=== PATIENT | female | born 1950 | race Two or more races ===

== ENCOUNTER 2018-07-08 17:26 | Inpatient (IN) | payer MEDICARE, MEDICAID ==
[~2018-07-08] VITALS: Ht 167.6 cm; Wt 52.4 kg
[2018-07-08 22:45] VITALS: BP 106/55
[2018-07-09] VITALS: BP 112/63
[2018-07-09] MEDS ORDERED: MULTIVITAMINS1 EAC8 ORAL (00:11)
[2018-07-09] MEDS ORDERED: SINEMET 25-1001 EAC1 ORAL (00:11)
[2018-07-09] MEDS ORDERED: DOCUSATE SODIU100 MG ORAL (00:11)
[2018-07-09] MEDS ORDERED: BUDESONIDE1 MG/2 ML IH (00:11)
[2018-07-09] MEDS ORDERED: KLONOPIN0.5 MG ORAL (00:11)
[2018-07-09] MEDS ORDERED: FLEET ENEMA133 M1 RC (00:11)
[2018-07-09] MEDS ORDERED: IPRAT-ALBUT 0.5-3 ML IH (00:11)
[2018-07-09] MEDS ORDERED: SUPPOSITORY1 EACH RC (00:11)
[2018-07-09] MEDS ORDERED: LEXAPRO20 MG ORAL (00:11)
[2018-07-09] MEDS ORDERED: MIRTAZAPINE30 MG ORAL (00:11)
[2018-07-09] MEDS ORDERED: DULCOLAX10 MG RC (00:11)
[2018-07-09] MEDS ORDERED: BISACODYL5 MG RECTAL (00:11)
[2018-07-09] MEDS ORDERED: LEVEMIR FL100 UNIT/2 SQ (00:11)
[2018-07-09] MEDS ORDERED: FAMOTIDINE20 MG ORAL (00:11)
[2018-07-09] MEDS ORDERED: FLEET ENEMA133 ML RECTAL (00:11)
[2018-07-09] MEDS ORDERED: ACETAMINOPHEN325 M1 ORAL (00:11)
[2018-07-09] MEDS ORDERED: MOM30 ML ORAL (00:11)
[2018-07-09] MEDS ORDERED: Albuterol/Ipratropium 3ml neb HHN PRN (00:30)
[2018-07-09] MEDS ORDERED: Fleet's Enema 133ml RECTAL PRN (00:30)
[2018-07-09] MEDS ORDERED: Bisacodyl EC 5mg tab ORAL PRN (00:30)
[2018-07-09] MEDS ORDERED: Budesonide HHN 0.25mg/2ml ud HHN PRN (00:45)
[2018-07-09] MEDS ORDERED: Glycerin Supp RECTAL PRN (00:45)
[2018-07-09] MEDS: cefTRIAXone 1 GM in D5W 55 ML IVPB SCH (01:13)
[2018-07-09] MEDS ORDERED: Milk of Magnesia 30ml Ud ORAL PRN (03:15)
[2018-07-09 04:00] VITALS: BP 138/68
[2018-07-09] MEDS: NovoLOG Insulin Flexpen SUBQ SCH ×4 (06:06→20:25)
[2018-07-09 07:31] LABS: BASOPHILS % (AUTO) 0.7 % (0.0-2.0); EOSINOPHILS % (AUTO) 1.2 % (0.0-3.0); HEMATOCRIT 32.7 % (37.0-47.0); HEMOGLOBIN 11.2 G/DL (12.0-16.0); LYMPHOCYTES % (AUTO) 16.8 % (20.0-45.0); MEAN CORPUSCULAR VOLUME 86 FL (80-99); MONOCYTES % (AUTO) 6.4 % (1.0-10.0); NEUTROPHILS % (AUTO) 74.9 % (45.0-75.0); PLATELET COUNT 164 K/UL (150-450); RED BLOOD COUNT 3.82 M/UL (4.20-5.40); RED CELL DISTRIBUTION WIDTH 10.8 % (11.6-14.8); WHITE BLOOD COUNT 8.1 K/UL (4.8-10.8)
[2018-07-09 07:40] LABS: ALANINE AMINOTRANSFERASE 47 U/L (12-78); ALBUMIN 2.9 G/DL (3.4-5.0); ALBUMIN/GLOBULIN RATIO 0.7 (1.0-2.7); ALKALINE PHOSPHATASE 138 U/L (46-116); ANION GAP 5 mmol/L (5-15); ASPARTATE AMINO TRANSFERASE 44 U/L (15-37); BILIRUBIN,TOTAL 0.3 MG/DL (0.2-1.0); BLOOD UREA NITROGEN 30 mg/dL (7-18); CALCIUM 10.2 MG/DL (8.5-10.1); CARBON DIOXIDE 29 MMOL/L (21-32); CHLORIDE 105 MMOL/L (98-107); CREATININE 0.9 MG/DL (0.55-1.30); POTASSIUM 4.5 MMOL/L (3.5-5.1); SODIUM 139 MMOL/L (136-145)
[2018-07-09 08:00] VITALS: BP 105/53
[2018-07-09] MEDS: Multivitamin w/Minerals tab ORAL SCH (08:59)
[2018-07-09] MEDS: Levodopa/Carbidopa 25/100 tab ORAL SCH ×2 (08:59→18:11)
[2018-07-09] MEDS: clonazePAM 0.5mg tab ORAL SCH ×2 (09:00→18:12)
[2018-07-09] MEDS ORDERED: Milk of Magnesia 30ml Ud ORAL SCH (09:00)
[2018-07-09] MEDS: Docusate 100mg cap ORAL SCH ×2 (09:00→18:11)
[2018-07-09] MEDS: Levemir Flexpen SUBQ SCH ×2 (09:01→20:24)
--- NOTE | 2018-07-09 09:40 | Diagnostic Imaging Report ---
EXAM: CT Head Without Intravenous Contrast CLINICAL HISTORY: Altered mental status TECHNIQUE: Axial computed tomography images of the head/brain without intravenous contrast. CTDI is 70.53 mGy and DLP is 1428 mGy-cm. One or more of the following dose reduction techniques were used: automated exposure control, adjustment of the mA and/or kV according to patient size, use of iterative reconstruction technique. COMPARISON: No relevant prior studies available. FINDINGS: Brain: Unremarkable. No evidence of acute intracranial hemorrhage. No significant white matter disease. No edema. No mass effect or midline shift. Ventricles: Unremarkable. No ventriculomegaly. Bones/joints: Unremarkable. No depressed skull fracture. Soft tissues: Unremarkable. Sinuses: Unremarkable as visualized. No acute sinusitis. Mastoid air cells: Unremarkable as visualized. No mastoid effusion. IMPRESSION: Unremarkable noncontrast CT of the head/brain.
[2018-07-09] MEDS ORDERED: Tubing IV Secondary IV ONE (10:42)
[2018-07-09 12:00] VITALS: BP 106/55
[2018-07-09 16:00] VITALS: BP 115/62
--- NOTE | 2018-07-09 18:02 | Cardiology Progress Note ---
Assessment/Plan Assessment/Plan The patient is seen and examined, full consult note will be dictated shortly. Objective Last 24 Hour Vital Signs Date Time Temp Pulse Resp B/P (MAP) Pulse Ox O2 Delivery O2 Flow Rate FiO2 07/09/18 16:00 97.1 63 20 115/62 (79) 97 07/09/18 12:00 99.2 60 20 106/55 (72) 96 07/09/18 09:00 Room Air 07/09/18 08:00 98.1 63 21 105/53 (70) 95 07/09/18 04:00 98.0 64 16 138/68 (91) 97 07/09/18 00:00 97.6 67 18 112/63 (79) 96 07/08/18 23:00 Room Air 07/08/18 22:45 97.5 67 18 106/55 (72) 93 Intake and Output 07/08/18 07/09/18 19:00 07:00 Intake Total 670 ml Balance 670 ml Intake Oral 240 ml IV Total 430 ml # Voids 3 # Bowel Movements 2 Laboratory Tests Test 07/09/18 06:00 White Blood Count 8.1 K/UL (4.8-10.8) Red Blood Count 3.82 M/UL (4.20-5.40) L Hemoglobin 11.2 G/DL (12.0-16.0) L Hematocrit 32.7 % (37.0-47.0) L Mean Corpuscular Volume 86 FL (80-99) Mean Corpuscular Hemoglobin 29.4 PG (27.0-31.0) Mean Corpuscular Hemoglobin Concent 34.2 G/DL (32.0-36.0) Red Cell Distribution Width 10.8 % (11.6-14.8) L Platelet Count 164 K/UL (150-450) Mean Platelet Volume 7.4 FL (6.5-10.1) Neutrophils (%) (Auto) 74.9 % (45.0-75.0) Lymphocytes (%) (Auto) 16.8 % (20.0-45.0) L Monocytes (%) (Auto) 6.4 % (1.0-10.0) Eosinophils (%) (Auto) 1.2 % (0.0-3.0) Basophils (%) (Auto) 0.7 % (0.0-2.0) Sodium Level 139 MMOL/L (136-145) Potassium Level 4.5 MMOL/L (3.5-5.1) Chloride Level 105 MMOL/L (98-107) Carbon Dioxide Level 29 MMOL/L (21-32) Anion Gap 5 mmol/L (5-15) Blood Urea Nitrogen 30 mg/dL (7-18) H Creatinine 0.9 MG/DL (0.55-1.30) Estimat Glomerular Filtration Rate > 60 mL/min (>60) Glucose Level 85 MG/DL (74-106) Hemoglobin A1c 5.9 % (4.3-6.0) Calcium Level 10.2 MG/DL (8.5-10.1) H Total Bilirubin 0.3 MG/DL (0.2-1.0) Aspartate Amino Transf (AST/SGOT) 44 U/L (15-37) H Alanine Aminotransferase (ALT/SGPT) 47 U/L (12-78) Alkaline Phosphatase 138 U/L (46-116) H Total Protein 7.1 G/DL (6.4-8.2) Albumin 2.9 G/DL (3.4-5.0) L Globulin 4.2 g/dL Albumin/Globulin Ratio 0.7 (1.0-2.7) L Microbiology Date/Time Source Procedure Growth Status 07/09/18 03:00 Rectum Received Laurent Thakkar MD Jul 09, 2018 18:02
--- NOTE | 2018-07-09 19:45 | History and Physical Report ---
DATE OF ADMISSION: 07/08/2018 HISTORY OF PRESENT ILLNESS: This is a 67-year-old female who came to the emergency room for altered mental status, dehydration, UTI, history of hypertension, and diabetes. The patient is confused and cannot give any history, but she looks deteriorated. PAST MEDICAL HISTORY: Significant for hypertension, dementia, depression, degenerative arthritis. ALLERGIES: NKA. FAMILY HISTORY: Noncontributory. SOCIAL HISTORY: The patient lives at senior care, mostly bedbound. REVIEW OF SYSTEMS: Cannot be obtained. PHYSICAL EXAMINATION: GENERAL: This is an elderly female, who is currently awake, comfortable. VITAL SIGNS: Blood pressure is 117/70, pulse 74, and respirations 18. No fever. SKIN: Good skin turgor. HEENT: NAD. CHEST: Bilateral clear. CARDIOVASCULAR: Regular rhythm. No gallop. No murmur. ABDOMEN: Soft. EXTREMITIES: No CCE. NEUROLOGICAL: Generalized weakness. ASSESSMENT: 1. Altered mental status. 2. Urinary tract infection. 3. Dehydration. 4. Encephalopathy. PLAN: We will admit on medical floor. Rule out UTI. Check laboratories, CBC and CMP. Start antibiotics, IV fluid, and consider Cardiology consult to rule out cardiac arrhythmia. Cheng De Leon M.D. DR: Shelley JOB#: [id number] CC:
[2018-07-09 20:00] VITALS: BP 128/61
--- NOTE | 2018-07-09 23:20 | Consultation ---
History of Present Illness General Date patient seen: Jul 09, 2018 Present Illness HPI 67-year-old female was bi for altered mental status, dehydration, UTI , history of hypertension, and diabetes. the pt pw depressed moo, anhedonia, low energy and low appetite no si/hi Allergies: Coded Allergies: No Known Allergies (Unverified , 07/08/18) Medication History Scheduled Carbidopa/Levodopa 25-100 Mg* (Sinemet 25-100 Mg Tablet*), 1 TAB ORAL TWICE A DAY, (Reported) Clonazepam* (Klonopin*), 0.5 MG ORAL TWICE A DAY, (Reported) Docusate Sodium* (Docusate Sodium*), 100 MG ORAL TWICE A DAY, (Reported) Escitalopram Oxalate* (Lexapro*), 20 MG ORAL DAILY, (Reported) Famotidine (Famotidine), 20 MG ORAL DAILY, (Reported) Insulin Detemir (Levemir Flextouch), 10 UNIT SQ EVERY 12 HOURS, (Reported) Magnesium Hydroxide (Milk of Magnesia), 30 ML ORAL DAILY, (Reported) Mirtazapine* (Remeron*), 30 MG ORAL BEDTIME, (Reported) Multivitamin With Minerals (Multivitamins With Minerals*), 1 TAB ORAL DAILY, ( Reported) Na Phos,M-B/Na Phos,Di-Ba* (Fleet Enema*), 133 ML RECTAL DAILY, (Reported) Scheduled PRN Acetaminophen* (Acetaminophen 325MG Tablet*), 650 MG ORAL Q4H PRN for Mild Pain (Pain Scale 1-3), (Reported) Bisacodyl (Dulcolax), 10 MG RC for Constipation, (Reported) Bisacodyl* (Dulcolax*), 10 MG RECTAL DAILY PRN for Constipation, (Reported) Budesonide (Budesonide), 0.5 MG IH EVERY 12 HOURS PRN for ASTHMA EPISODE, ( Reported) Glycerin (Suppository), 1 EACH RC for Constipation, (Reported) Ipratropium/Albuterol Sulfate (Iprat-Albut 0.5-3(2.5) Mg/3 Ml), 3 ML IH EVERY 4 HOURS PRN for Shortness of Breath, (Reported) Na Phos,M-B/Na Phos,Di-Ba (Fleet Enema), 133 ML RC for Constipation, (Reported) Patient History Limited by: medical condition History Provided By: Patient, Medical Record Healthcare decision maker LAVONNE GREWAL EILEEN A Resuscitation status Full Code Advanced Directive on File N/A Past Medical/Surgical History Past Medical/Surgical History: (1) Encephalopathy (2) Altered mental status Review of Systems Psychiatric: Reports: prior hx, anxiety, depressed feelings, emotional problems Physical Exam General Appearance: no apparent distress, alert, confused Last 24 Hour Vital Signs Date Time Temp Pulse Resp B/P (MAP) Pulse Ox O2 Delivery O2 Flow Rate FiO2 07/09/18 21:04 Room Air 07/09/18 21:01 97.9 07/09/18 20:00 97.9 58 18 128/61 (83) 95 07/09/18 16:00 97.1 63 20 115/62 (79) 97 07/09/18 12:00 99.2 60 20 106/55 (72) 96 07/09/18 09:00 Room Air 07/09/18 08:00 98.1 63 21 105/53 (70) 95 07/09/18 04:00 98.0 64 16 138/68 (91) 97 07/09/18 00:00 97.6 67 18 112/63 (79) 96 Intake and Output 07/08/18 07/09/18 19:00 07:00 Intake Total 670 ml Balance 670 ml Intake Oral 240 ml IV Total 430 ml # Voids 3 # Bowel Movements 2 Laboratory Tests Test 07/09/18 06:00 White Blood Count 8.1 K/UL (4.8-10.8) Red Blood Count 3.82 M/UL (4.20-5.40) L Hemoglobin 11.2 G/DL (12.0-16.0) L Hematocrit 32.7 % (37.0-47.0) L Mean Corpuscular Volume 86 FL (80-99) Mean Corpuscular Hemoglobin 29.4 PG (27.0-31.0) Mean Corpuscular Hemoglobin Concent 34.2 G/DL (32.0-36.0) Red Cell Distribution Width 10.8 % (11.6-14.8) L Platelet Count 164 K/UL (150-450) Mean Platelet Volume 7.4 FL (6.5-10.1) Neutrophils (%) (Auto) 74.9 % (45.0-75.0) Lymphocytes (%) (Auto) 16.8 % (20.0-45.0) L Monocytes (%) (Auto) 6.4 % (1.0-10.0) Eosinophils (%) (Auto) 1.2 % (0.0-3.0) Basophils (%) (Auto) 0.7 % (0.0-2.0) Sodium Level 139 MMOL/L (136-145) Potassium Level 4.5 MMOL/L (3.5-5.1) Chloride Level 105 MMOL/L (98-107) Carbon Dioxide Level 29 MMOL/L (21-32) Anion Gap 5 mmol/L (5-15) Blood Urea Nitrogen 30 mg/dL (7-18) H Creatinine 0.9 MG/DL (0.55-1.30) Estimat Glomerular Filtration Rate > 60 mL/min (>60) Glucose Level 85 MG/DL (74-106) Hemoglobin A1c 5.9 % (4.3-6.0) Calcium Level 10.2 MG/DL (8.5-10.1) H Total Bilirubin 0.3 MG/DL (0.2-1.0) Aspartate Amino Transf (AST/SGOT) 44 U/L (15-37) H Alanine Aminotransferase (ALT/SGPT) 47 U/L (12-78) Alkaline Phosphatase 138 U/L (46-116) H Total Protein 7.1 G/DL (6.4-8.2) Albumin 2.9 G/DL (3.4-5.0) L Globulin 4.2 g/dL Albumin/Globulin Ratio 0.7 (1.0-2.7) L Microbiology Date/Time Source Procedure Growth Status 07/09/18 03:00 Rectum Received Height (Feet): 5 Height (Inches): 6.00 Weight (Pounds): 109 Medications Current Medications Medications (Trade) Dose Ordered Sig/Reza Route PRN Reason Start Time Stop Time Status Last Admin Dose Admin Acetaminophen (Tylenol) 650 mg Q4H PRN ORAL Mild Pain (Pain Scale 1-3) 07/09/18 00:30 08/08/18 00:29 07/09/18 20:23 Albuterol/ Ipratropium (Albuterol/ Ipratropium) 3 ml EVERY 4 HOURS PRN HHN Shortness of Breath 07/09/18 00:30 07/14/18 00:29 Bisacodyl (Dulcolax) 10 mg DAILY PRN ORAL Constipation 07/09/18 00:30 08/08/18 00:29 Bisacodyl (Dulcolax) 10 mg DAILY PRN RECTAL Constipation 07/09/18 00:30 08/08/18 00:29 Budesonide (Pulmicort) 0.5 mg Q12HRT PRN HHN Shortness of Breath 07/09/18 00:45 08/08/18 00:44 UNV Carbidopa/Levodopa (Sinemet 25/100) 1 tab TWICE A DAY ORAL 07/09/18 09:00 08/08/18 08:59 07/09/18 18:11 Ceftriaxone Sodium 1 gm/ Dextrose 55 ml @ 110 mls/hr Q24H IVPB 07/09/18 00:30 07/16/18 00:29 07/09/18 01:13 Clonazepam (KlonoPIN) 0.5 mg TWICE A DAY ORAL 07/09/18 09:00 07/16/18 08:59 07/09/18 18:12 Dextrose (Dextrose 50%) 25 ml Q30M PRN IV Hypoglycemia 07/09/18 00:30 08/08/18 00:29 Dextrose (Dextrose 50%) 50 ml Q30M PRN IV Hypoglycemia 07/09/18 00:30 08/08/18 00:29 Docusate Sodium (Colace) 100 mg TWICE A DAY ORAL 07/09/18 09:00 08/08/18 08:59 07/09/18 18:11 Escitalopram Oxalate (Lexapro) 20 mg DAILY ORAL 07/09/18 09:00 08/08/18 08:59 07/09/18 09:00 Famotidine (Pepcid) 20 mg DAILY ORAL 07/09/18 09:00 08/08/18 08:59 07/09/18 08:59 Glycerin (Glycerin) 1 supp DAILYPRN PRN RECTAL Constipation 07/09/18 00:45 08/08/18 00:44 Insulin Aspart (NovoLOG) BEFORE MEALS AND HS SUBQ 07/09/18 06:30 08/08/18 06:29 07/09/18 20:25 Insulin Detemir (Levemir) 10 units EVERY 12 HOURS SUBQ 07/09/18 09:00 08/08/18 08:59 07/09/18 20:24 Magnesium Hydroxide (Mom) 30 ml EVERY 72 HOURS PRN ORAL Constipation 07/09/18 03:15 08/08/18 03:14 Mirtazapine (Remeron) 30 mg BEDTIME ORAL 07/09/18 21:00 08/08/18 20:59 07/09/18 20:22 Multivitamins Therapeutic (Therapeutic Multivitamin) 1 ea DAILY ORAL 07/09/18 09:00 08/08/18 08:59 07/09/18 08:59 Sodium Chloride 1,000 ml @ 75 mls/hr [id number] IV 07/09/18 00:30 08/08/18 00:29 07/09/18 13:54 Sodium Phosphate (Fleet's Sodium Phosl Enema) 133 ml DAILYPRN PRN RECTAL Constipation-last choice 07/09/18 00:30 08/08/18 00:29 Assessment/Plan Problem List: (1) Encephalopathy ICD Codes: G93.40 - Encephalopathy, unspecified (2) Encephalopathy due to metabolic factor or toxin SNOMED: 192499202 (3) MDD (major depressive disorder) ICD Codes: F32.9 - Major depressive disorder, single episode, unspecified SNOMED: 310172539 Status: stable Assessment/Plan remeron 30mg po qhs klonopin 1mg po hs provided ro/Darren Peck MD Jul 09, 2018 23:20
[2018-07-10] VITALS: BP 119/64
[2018-07-10] MEDS: cefTRIAXone 1 GM in D5W 55 ML IVPB SCH ×2 (00:01→23:38)
[2018-07-10 04:00] VITALS: BP 136/58
[2018-07-10] MEDS: NovoLOG Insulin Flexpen SUBQ SCH ×4 (06:09→21:04)
[2018-07-10 08:00] VITALS: BP 116/66
[2018-07-10] MEDS: Multivitamin w/Minerals tab ORAL SCH (08:28)
[2018-07-10] MEDS: Docusate 100mg cap ORAL SCH ×2 (08:28→17:06)
[2018-07-10] MEDS: Levodopa/Carbidopa 25/100 tab ORAL SCH ×2 (08:29→17:06)
[2018-07-10] MEDS: clonazePAM 0.5mg tab ORAL SCH ×2 (08:29→17:07)
[2018-07-10] MEDS: Levemir Flexpen SUBQ SCH ×2 (08:31→21:05)
[2018-07-10] MEDS ORDERED: 1/2 NS 1000ml IV ONE (09:11)
[2018-07-10 12:00] VITALS: BP 106/64
[2018-07-10 16:00] VITALS: BP 116/64
--- NOTE | 2018-07-10 19:29 | Cardiology Progress Note ---
Assessment/Plan Assessment/Plan 1. Hypotension, resolved, continue NS at 75ml/hr, will obtain labs in am. 2. ALOC likely due to intravascular volume depletion. 3. Prerenal azotemia, continue hydration. 4. Contraction alkalosis. Subjective Subjective Not on the telemetry unit. No cardiac events. Objective Last 24 Hour Vital Signs Date Time Temp Pulse Resp B/P (MAP) Pulse Ox O2 Delivery O2 Flow Rate FiO2 07/10/18 16:00 98.0 74 19 116/64 (81) 98 07/10/18 12:00 98.1 60 18 106/64 (78) 97 07/10/18 09:00 Room Air 07/10/18 08:00 98.9 55 17 116/66 (83) 96 07/10/18 04:00 97.6 54 18 136/58 (84) 96 07/10/18 00:00 97.2 54 18 119/64 (82) 96 07/09/18 21:04 Room Air 07/09/18 21:01 97.9 07/09/18 20:00 97.9 58 18 128/61 (83) 95 Intake and Output 07/09/18 07/10/18 18:59 06:59 Intake Total 1620 ml 880 ml Output Total 1200 ml Balance 1620 ml -320 ml Intake Oral 720 ml IV Total 900 ml 880 ml Output Urine Total 1200 ml # Bowel Movements 2 Microbiology Date/Time Source Procedure Growth Status 07/09/18 03:00 Rectum Received Objective HEENT: Atraumatic and normocephalic. Anicteric. Pupils are equal, round, and reactive to light and accommodation. NECK: JVP less than 5 cm. No carotid bruits. CVS: Normal S1, S2. Regular rate and rhythm. Tachycardic. No murmurs, gallops, or rubs. LUNGS: Clear to auscultation bilaterally. ABDOMEN: Soft, nontender, and nondistended. No hepatosplenomegaly. Positive bowel sounds. EXTREMITIES: No evidence of edema, clubbing, or cyanosis. Laurent Thakkar MD Jul 10, 2018 19:29
[2018-07-10 20:00] VITALS: BP 103/59
--- NOTE | 2018-07-10 20:29 | Progress Note ---
DATE: 07/10/2018 SUBJECTIVE: This is a 67-year-old female, currently in bed, comfortable, in no distress. OBJECTIVE: VITAL SIGNS: Blood pressure is 106/64, pulse 60, respirations 18, and temperature 98.1. HEENT: NAD. CHEST: Bilaterally clear. CARDIOVASCULAR: Regular rhythm. No gallop. No murmur. ABDOMEN: Soft. EXTREMITIES: CCE. NEUROLOGICAL: Generalized weakness. LABORATORY DATA: Her white count 8.1, hemoglobin 11, and hematocrit 32. Chemistry panel, sodium 139, potassium 4.5, BUN 13, creatinine 0.9, and glucose 60. The patient is unable to talk, but she is opening her eyes. Her urine test is pending. ASSESSMENT: 1. Altered mental status. 2. Dehydration. 3. UTI. 4. Encephalopathy. 5. Dementia. 6. 7. Parkinson disease. PLAN: 1. Continue Sinemet. 2. Continue , Klonopin, Pepcid, Levemir, milk of magnesia. 3. Continue supportive treatment. Cheng De Leon M.D. DR: ALEKS JOB#: [id number] CC:
--- NOTE | 2018-07-10 21:30 | Consultation ---
DATE OF CONSULTATION: 07/09/2018 CARDIOLOGY CONSULTATION CONSULTING PHYSICIAN: Laurent Thakkar M.D. REFERRING PHYSICIAN: Cheng De Leon M.D. REASON FOR CONSULTATION: Hypotension. HISTORY OF PRESENT ILLNESS: The patient is a very unfortunate 67-year-old female, who presents to the emergency department for evaluation and management of altered level of consciousness. The patient unfortunately is confused and cannot provide any history. In the emergency department, initial blood pressure was 105/66 and a pulse of 67. Initial laboratory finding was significant for contraction alkalosis with a bicarbonate of 29 and elevated BUN and creatinine ratio of 30/0.9 suggestive of prerenal azotemia. The patient was also found to be malnourished with albumin level of 2.9. She was started on IV fluid and was admitted to Med/Surg unit for further evaluation and management. Cardiology consultation was made for impending shock in a patient with possibility of sepsis. PAST MEDICAL HISTORY: 1. Dementia. 2. Hypertension. 3. Depression. 4. History of degenerative arthritis. 5. History of urinary tract infection. MEDICATIONS: List of medications in the nursing facility includes acetaminophen 650 mg q.4 h. p.r.n. pain, Dulcolax 10 mg rectal p.r.n. constipation, budesonide 0.5 mg inhaler every 12 hours p.r.n. shortness of breath due to asthma, Sinemet 25/100 one tablet twice daily, Klonopin 0.5 mg twice daily, Colace 100 mg twice daily, Lexapro 20 mg p.o. daily, famotidine 20 mg p.o. daily, and glycerin suppository 1 suppository per rectum p.r.n. constipation, insulin Levemir 10 units subcutaneous q.12 hours, DuoNeb 3 mL inhaler q.4 h. p.r.n. shortness of breath, magnesium hydroxide 30 mL p.o. daily, Remeron 30 mg p.o. at bedtime, multivitamin one p.o. daily, and Fleet Enema 133 mL rectal p.r.n. constipation. ALLERGIES: No known drug allergies. FAMILY HISTORY: No premature coronary artery disease in first-degree relatives. SOCIAL HISTORY: [facility] is a [facility] Bed-bound. There is no history of tobacco, alcohol, or illicit drug use. REVIEW OF SYSTEMS: A 12-system review cannot be obtained as the patient has underlying dementia. PHYSICAL EXAMINATION: VITAL SIGNS: Blood pressure at time of arrival to the hospital was 106/55 with a mean of 72, pulse of 67 respirations 18, temperature 97.5 degrees Fahrenheit, and O2 saturation % on room air. GENERAL: The patient is a very unfortunate 67-year-old lady, who is demented, not verbally communicating coherently. HEENT: Atraumatic and normocephalic. Anicteric. Pupils are equal, round, and reactive to light and accommodation. Extraocular muscles intact. NECK: JVP less than 5 cm. No carotid bruit. Carotid upstrokes 2+ bilaterally. CARDIOVASCULAR: Normal S1, S2. Regular rate and rhythm. No gallops, murmurs, or rubs. PMI is at fourth intercostal space at the midclavicular line. LUNGS: Clear to auscultation bilaterally. ABDOMEN: Soft, nontender, and nondistended. No hepatosplenomegaly. Positive bowel sounds. EXTREMITIES: No evidence of edema, clubbing, or cyanosis. LABORATORY FINDINGS: Sodium is 139, potassium is 4.5, chloride 105, bicarbonate 29, BUN of 30, creatinine 0.9, and glucose is 85. Calcium is 9.2. WBC 8.1, hemoglobin 11.2, hematocrit 32.7, and platelet count is 164,000. CT of head showed unremarkable noncontrast CT of head and brain. ASSESSMENT AND PLAN: The patient is a very unfortunate 67-year-old female seen in Cardiology consultation at the request of Dr. De Leon. 1. Borderline hypotension, impending sepsis, most likely sepsis is a cause for altered level of consciousness and contraction alkalosis, requiring to administer fluids. The patient will be continued on the sodium chloride at 75 mL per hour. We will obtain electrolytes in a.m. 2. A 2D echocardiography for assessment of LV systolic function on Wednesday. 3. Altered level of consciousness most likely due to sepsis or severe hypovolemia. 4. Prerenal azotemia likely due to intravascular volume depletion, we will continue with normal saline at 75 mL per hour. I would like to thank, Dr. De Leon, for allowing me to participate in the care of this patient. Laurent Thakkar M.D. DR: ANA JOB#: [id number] CC:
[2018-07-11] VITALS: BP 110/61
[2018-07-11 04:00] VITALS: BP 110/61
[2018-07-11] MEDS: NovoLOG Insulin Flexpen SUBQ SCH ×4 (06:14→21:00)
[2018-07-11 06:28] LABS: BASOPHILS % (AUTO) 1.2 % (0.0-2.0); EOSINOPHILS % (AUTO) 3.3 % (0.0-3.0); HEMATOCRIT 33.9 % (37.0-47.0); HEMOGLOBIN 11.3 G/DL (12.0-16.0); LYMPHOCYTES % (AUTO) 25.8 % (20.0-45.0); MEAN CORPUSCULAR VOLUME 86 FL (80-99); MONOCYTES % (AUTO) 7.5 % (1.0-10.0); NEUTROPHILS % (AUTO) 62.2 % (45.0-75.0); PLATELET COUNT 192 K/UL (150-450); RED BLOOD COUNT 3.94 M/UL (4.20-5.40); RED CELL DISTRIBUTION WIDTH 10.5 % (11.6-14.8); WHITE BLOOD COUNT 5.9 K/UL (4.8-10.8)
[2018-07-11 06:59] LABS: ANION GAP 4 mmol/L (5-15); BLOOD UREA NITROGEN 23 mg/dL (7-18); CALCIUM 10.4 MG/DL (8.5-10.1); CARBON DIOXIDE 30 MMOL/L (21-32); CHLORIDE 107 MMOL/L (98-107); CREATININE 0.8 MG/DL (0.55-1.30); POTASSIUM 4.5 MMOL/L (3.5-5.1); SODIUM 141 MMOL/L (136-145)
[2018-07-11 08:00] VITALS: BP 114/65
[2018-07-11] MEDS: clonazePAM 0.5mg tab ORAL SCH ×2 (09:17→18:20)
[2018-07-11] MEDS: Docusate 100mg cap ORAL SCH ×2 (09:17→18:20)
[2018-07-11] MEDS: Multivitamin w/Minerals tab ORAL SCH (09:17)
[2018-07-11] MEDS: Levodopa/Carbidopa 25/100 tab ORAL SCH ×2 (09:18→18:20)
[2018-07-11] MEDS: Levemir Flexpen SUBQ SCH ×2 (09:26→21:02)
--- NOTE | 2018-07-11 10:59 | Consultation ---
Consult Note Consult Note ID: A 67 yo female with PMH of dementia HTN and depression presented to ED with ALOC , was found to have UTI due to gram negative rods Assessment/Plan 1. UTI due to gram negative rods 2. ALOC due to the above 3. hypotension rule out sepsis VS dehydration RECOMMENDATIONS: 1. continue ceftriaxon pending urine culture result 2. will adjust antibiotics as per culture result 3. continue hydration as needed Red Arenas M.D. Jul 11, 2018 10:59
[2018-07-11 12:00] VITALS: BP 120/79
--- NOTE | 2018-07-11 12:24 | Cardiology Report ---
APPROVED REPORT EXAM: Two-dimensional and M-mode echocardiogram with Doppler and color Doppler. INDICATION Altered LOC M-Mode DIMENSIONS IVSd1.3 (0.7-1.1cm)Left Atrium (MM)3.4 (1.6-4.0cm) LVDd4.3 (3.5-5.6cm)Aortic Root2.9 (2.0-3.7cm) PWd1.0 (0.7-1.1cm)Aortic Cusp Exc.1.7 (1.5-2.0cm) LVDs2.9 (2.5-4.0cm) PWs1.3 cm Normal left ventricular chamber size, systolic function and wall motion. Left ventricular ejection fraction estimated to be 60 %. Mild left ventricular hypertrophy. No evidence of pericardial effusion. All other cardiac chamber sizes are within normal limits. Focal aortic valve sclerosis with adequate cusp excursion. Mildly thickened mitral valve leaflets with normal excursion. Mild mitral annulus and aortic root calcification. Pulmonic valve not well visualized. Normal tricuspid valve structure. IVC is normal in size with physiological collapse. A color flow and spectral Doppler study was performed and revealed: No aortic insufficiency. Mild mitral regurgitation. Mitral diastolic velocities suggest mild left ventricular diastolic dysfunction (Grade I). Trace tricuspid regurgitation. Tricuspid systolic velocities suggests peak right ventricular systolic pressure of 17 mmHg. Trace pulmonic regurgitation present.
--- NOTE | 2018-07-11 12:48 | General Progress Note ---
Assessment/Plan Status: stable, progressing Assessment/Plan remeron 345mg po qhs klonopin 1mg po hs provided ro/st Subjective Date patient seen: Jul 11, 2018 Neurologic/Psychiatric: Reports: anxiety, depressed, emotional problems Allergies: Coded Allergies: No Known Allergies (Unverified , 07/08/18) Objective Last 24 Hour Vital Signs Date Time Temp Pulse Resp B/P (MAP) Pulse Ox O2 Delivery O2 Flow Rate FiO2 07/11/18 09:00 Room Air 07/11/18 08:00 98.4 62 19 114/65 (81) 98 07/11/18 04:00 96.4 61 19 110/61 (77) 96 07/11/18 00:00 96.4 61 19 110/61 (77) 96 07/10/18 21:00 Room Air 07/10/18 20:00 96.5 59 16 103/59 (74) 96 07/10/18 16:00 98.0 74 19 116/64 (81) 98 Intake and Output 07/10/18 07/11/18 19:00 07:00 Intake Total 1525 ml 805 ml Output Total 400 ml Balance 1525 ml 405 ml IV Total 825 ml 805 ml Other 700 ml Output Urine Total 400 ml # Voids 3 3 # Bowel Movements 2 1 Laboratory Tests 07/11/18 05:30: White Blood Count 5.9, Red Blood Count 3.94L, Hemoglobin 11.3L, Hematocrit 33.9L , Mean Corpuscular Volume 86, Mean Corpuscular Hemoglobin 28.6, Mean Corpuscular Hemoglobin Concent 33.2, Red Cell Distribution Width 10.5L, Platelet Count 192, Mean Platelet Volume 7.0, Neutrophils (%) (Auto) 62.2, Lymphocytes (%) (Auto) 25.8, Monocytes (%) (Auto) 7.5, Eosinophils (%) (Auto) 3.3H, Basophils (%) (Auto) 1.2, Sodium Level 141, Potassium Level 4.5, Chloride Level 107, Carbon Dioxide Level 30, Anion Gap 4L, Blood Urea Nitrogen 23H, Creatinine 0.8, Estimat Glomerular Filtration Rate > 60, Glucose Level 72L, Calcium Level 10.4H, Magnesium Level 1.7L Height (Feet): 5 Height (Inches): 6.00 Weight (Pounds): 109 General Appearance: no apparent distress, alert Neurologic: oriented x 3, responsive, depressed affect Darren See MD Jul 11, 2018 12:48
[2018-07-11 16:00] VITALS: BP 115/69
--- NOTE | 2018-07-11 19:02 | Cardiology Progress Note ---
Assessment/Plan Assessment/Plan 1. Hypotension, resolved, continue hydration. 2. ALOC likely due to intravascular volume depletion. 3. Prerenal azotemia, continue hydration. 4. Contraction alkalosis. 5. Hypomagnesemia, Mg sulfate 2 grams IVPB ordered, check Mg in am. Subjective Subjective Not on the telemetry unit. No cardiac events. Objective Last 24 Hour Vital Signs Date Time Temp Pulse Resp B/P (MAP) Pulse Ox O2 Delivery O2 Flow Rate FiO2 07/11/18 16:00 98.6 83 19 115/69 (84) 97 07/11/18 12:00 97.7 74 18 120/79 (93) 98 07/11/18 09:00 Room Air 07/11/18 08:00 98.4 62 19 114/65 (81) 98 07/11/18 04:00 96.4 61 19 110/61 (77) 96 07/11/18 00:00 96.4 61 19 110/61 (77) 96 07/10/18 21:00 Room Air 07/10/18 20:00 96.5 59 16 103/59 (74) 96 Intake and Output 07/10/18 07/11/18 18:59 06:59 Intake Total 1450 ml 805 ml Output Total 400 ml Balance 1450 ml 405 ml IV Total 750 ml 805 ml Other 700 ml Output Urine Total 400 ml # Voids 3 3 # Bowel Movements 2 1 Laboratory Tests Test 07/11/18 05:30 White Blood Count 5.9 K/UL (4.8-10.8) Red Blood Count 3.94 M/UL (4.20-5.40) L Hemoglobin 11.3 G/DL (12.0-16.0) L Hematocrit 33.9 % (37.0-47.0) L Mean Corpuscular Volume 86 FL (80-99) Mean Corpuscular Hemoglobin 28.6 PG (27.0-31.0) Mean Corpuscular Hemoglobin Concent 33.2 G/DL (32.0-36.0) Red Cell Distribution Width 10.5 % (11.6-14.8) L Platelet Count 192 K/UL (150-450) Mean Platelet Volume 7.0 FL (6.5-10.1) Neutrophils (%) (Auto) 62.2 % (45.0-75.0) Lymphocytes (%) (Auto) 25.8 % (20.0-45.0) Monocytes (%) (Auto) 7.5 % (1.0-10.0) Eosinophils (%) (Auto) 3.3 % (0.0-3.0) H Basophils (%) (Auto) 1.2 % (0.0-2.0) Sodium Level 141 MMOL/L (136-145) Potassium Level 4.5 MMOL/L (3.5-5.1) Chloride Level 107 MMOL/L (98-107) Carbon Dioxide Level 30 MMOL/L (21-32) Anion Gap 4 mmol/L (5-15) L Blood Urea Nitrogen 23 mg/dL (7-18) H Creatinine 0.8 MG/DL (0.55-1.30) Estimat Glomerular Filtration Rate > 60 mL/min (>60) Glucose Level 72 MG/DL (74-106) L Calcium Level 10.4 MG/DL (8.5-10.1) H Magnesium Level 1.7 MG/DL (1.8-2.4) L Microbiology Date/Time Source Procedure Growth Status 07/09/18 03:00 Nasal Nares Left MRSA Culture - Final NO METHICILLIN RESISTANT STAPH AUREUS... Complete 07/09/18 21:45 Urine,Clean Catch Urine Culture - Preliminary Gram Negative Bacillus 1 Resulted 07/09/18 03:00 Rectum - Final NO CARBAPENEM-RESISTANT ENTEROBACTERI... Complete 07/09/18 03:00 Rectum VRE Culture - Final NO VANCOMYCIN RESISTANT ENTEROCOCCUS ... Complete Objective HEENT: Atraumatic and normocephalic. Anicteric. Pupils are equal, round, and reactive to light and accommodation. NECK: JVP less than 5 cm. No carotid bruits. CVS: Normal S1, S2. Regular rate and rhythm. No murmurs, gallops, or rubs. LUNGS: Clear to auscultation bilaterally. ABDOMEN: Soft, nontender, and nondistended. No hepatosplenomegaly. Positive bowel sounds. EXTREMITIES: No evidence of edema, clubbing, or cyanosis. Laurent Thakkar MD Jul 11, 2018 19:02
--- NOTE | 2018-07-11 19:56 | Psych Consult Progress Note ---
Psych Consult Progress Note Consult 07/10/18 Vital Signs Last 24 Hour Vital Signs Date Time Temp Pulse Resp B/P (MAP) Pulse Ox O2 Delivery O2 Flow Rate FiO2 07/11/18 16:00 98.6 83 19 115/69 (84) 97 07/11/18 12:00 97.7 74 18 120/79 (93) 98 07/11/18 09:00 Room Air 07/11/18 08:00 98.4 62 19 114/65 (81) 98 07/11/18 04:00 96.4 61 19 110/61 (77) 96 07/11/18 00:00 96.4 61 19 110/61 (77) 96 07/10/18 21:00 Room Air 07/10/18 20:00 96.5 59 16 103/59 (74) 96 Labs Laboratory Tests Test 07/11/18 05:30 White Blood Count 5.9 K/UL (4.8-10.8) Red Blood Count 3.94 M/UL (4.20-5.40) L Hemoglobin 11.3 G/DL (12.0-16.0) L Hematocrit 33.9 % (37.0-47.0) L Mean Corpuscular Volume 86 FL (80-99) Mean Corpuscular Hemoglobin 28.6 PG (27.0-31.0) Mean Corpuscular Hemoglobin Concent 33.2 G/DL (32.0-36.0) Red Cell Distribution Width 10.5 % (11.6-14.8) L Platelet Count 192 K/UL (150-450) Mean Platelet Volume 7.0 FL (6.5-10.1) Neutrophils (%) (Auto) 62.2 % (45.0-75.0) Lymphocytes (%) (Auto) 25.8 % (20.0-45.0) Monocytes (%) (Auto) 7.5 % (1.0-10.0) Eosinophils (%) (Auto) 3.3 % (0.0-3.0) H Basophils (%) (Auto) 1.2 % (0.0-2.0) Sodium Level 141 MMOL/L (136-145) Potassium Level 4.5 MMOL/L (3.5-5.1) Chloride Level 107 MMOL/L (98-107) Carbon Dioxide Level 30 MMOL/L (21-32) Anion Gap 4 mmol/L (5-15) L Blood Urea Nitrogen 23 mg/dL (7-18) H Creatinine 0.8 MG/DL (0.55-1.30) Estimat Glomerular Filtration Rate > 60 mL/min (>60) Glucose Level 72 MG/DL (74-106) L Calcium Level 10.4 MG/DL (8.5-10.1) H Magnesium Level 1.7 MG/DL (1.8-2.4) L Medications Current Medications Medications (Trade) Dose Ordered Sig/Reza Route PRN Reason Start Time Stop Time Status Last Admin Dose Admin Acetaminophen (Tylenol) 650 mg Q4H PRN ORAL Mild Pain (Pain Scale 1-3) 07/09/18 00:30 08/08/18 00:29 07/09/18 20:23 Albuterol/ Ipratropium (Albuterol/ Ipratropium) 3 ml EVERY 4 HOURS PRN HHN Shortness of Breath 07/09/18 00:30 07/14/18 00:29 Bisacodyl (Dulcolax) 10 mg DAILY PRN ORAL Constipation 07/09/18 00:30 08/08/18 00:29 Bisacodyl (Dulcolax) 10 mg DAILY PRN RECTAL Constipation 07/09/18 00:30 08/08/18 00:29 Budesonide (Pulmicort) 0.5 mg Q12H PRN HHN Shortness of Breath 07/09/18 00:45 08/08/18 00:44 Carbidopa/Levodopa (Sinemet 25/100) 1 tab TWICE A DAY ORAL 07/09/18 09:00 08/08/18 08:59 07/11/18 18:20 Ceftriaxone Sodium 1 gm/ Dextrose 55 ml @ 110 mls/hr Q24H IVPB 07/09/18 00:30 07/16/18 00:29 07/10/18 23:38 Clonazepam (KlonoPIN) 0.5 mg TWICE A DAY ORAL 07/09/18 09:00 07/16/18 08:59 07/11/18 18:20 Dextrose (Dextrose 50%) 25 ml Q30M PRN IV Hypoglycemia 07/09/18 00:30 08/08/18 00:29 Dextrose (Dextrose 50%) 50 ml Q30M PRN IV Hypoglycemia 07/09/18 00:30 08/08/18 00:29 Docusate Sodium (Colace) 100 mg TWICE A DAY ORAL 07/09/18 09:00 08/08/18 08:59 07/11/18 18:20 Escitalopram Oxalate (Lexapro) 20 mg DAILY ORAL 07/09/18 09:00 08/08/18 08:59 07/11/18 09:18 Famotidine (Pepcid) 20 mg DAILY ORAL 07/09/18 09:00 08/08/18 08:59 07/11/18 09:17 Glycerin (Glycerin) 1 supp DAILYPRN PRN RECTAL Constipation 07/09/18 00:45 08/08/18 00:44 Insulin Aspart (NovoLOG) BEFORE MEALS AND HS SUBQ 07/09/18 06:30 08/08/18 06:29 07/11/18 18:23 Insulin Detemir (Levemir) 10 units EVERY 12 HOURS SUBQ 07/09/18 09:00 08/08/18 08:59 07/11/18 09:26 Magnesium Hydroxide (Mom) 30 ml EVERY 72 HOURS PRN ORAL Constipation 07/09/18 03:15 08/08/18 03:14 Magnesium Sulfate 100 ml @ 100 mls/hr Q1H IVPB 07/11/18 20:00 07/11/18 21:59 Mirtazapine (Remeron) 30 mg BEDTIME ORAL 07/09/18 21:00 08/08/18 20:59 07/10/18 21:03 Multivitamins Therapeutic (Therapeutic Multivitamin) 1 ea DAILY ORAL 07/09/18 09:00 08/08/18 08:59 07/11/18 09:17 Sodium Chloride 1,000 ml @ 75 mls/hr [id number] IV 07/09/18 00:30 08/08/18 00:29 07/11/18 18:25 Sodium Phosphate (Fleet's Sodium Phosl Enema) 133 ml DAILYPRN PRN RECTAL Constipation-last choice 07/09/18 00:30 08/08/18 00:29 Problems: (1) Encephalopathy Status: Acute (2) Encephalopathy due to metabolic factor or toxin Status: Acute (3) MDD (major depressive disorder) Status: Chronic Assessment & Plan: remeron 30mg po qhs klonopin 1mg po hs provided ro/Darren Peck MD Jul 11, 2018 19:56
[2018-07-11 20:00] VITALS: BP 129/68
[2018-07-12] VITALS: BP 132/67
[2018-07-12] MEDS: cefTRIAXone 1 GM in D5W 55 ML IVPB SCH (00:43)
[2018-07-12 04:00] VITALS: BP 124/58
[2018-07-12] MEDS: NovoLOG Insulin Flexpen SUBQ SCH ×4 (05:57→20:08)
[2018-07-12 08:00] VITALS: BP 112/60
[2018-07-12] MEDS: Levodopa/Carbidopa 25/100 tab ORAL SCH ×2 (09:21→17:44)
[2018-07-12] MEDS: Multivitamin w/Minerals tab ORAL SCH (09:21)
[2018-07-12] MEDS: Docusate 100mg cap ORAL SCH ×2 (09:21→17:44)
[2018-07-12] MEDS: clonazePAM 0.5mg tab ORAL SCH ×2 (09:21→17:44)
[2018-07-12] MEDS: Levemir Flexpen SUBQ SCH ×2 (09:25→20:07)
[2018-07-12 11:53] VITALS: BP 115/61
--- NOTE | 2018-07-12 14:14 | Infectious Diseases Prog Note ---
Assessment/Plan Problems: (1) UTI (urinary tract infection) Assessment & Plan: due to gram negative rods, continue ceftriaxone pending culture results (2) Dehydration Assessment & Plan: continue IVF and hydration, encourage po intake (3) Encephalopathy due to metabolic factor or toxin Assessment & Plan: improving , present on admission (4) Hypotension Assessment & Plan: dehydration VS sepsis , await blood culture Subjective ROS Limited/Unobtainable: Yes Allergies: Coded Allergies: No Known Allergies (Unverified , 07/08/18) Subjective she was up in bed, anxious , complaining of generalized body ache, afebrile Objective Vital Signs Last 24 Hour Vital Signs Date Time Temp Pulse Resp B/P (MAP) Pulse Ox O2 Delivery O2 Flow Rate FiO2 07/12/18 11:53 98.6 61 17 115/61 (79) 96 07/12/18 10:59 65 18 Room Air 21 07/12/18 09:00 Room Air 07/12/18 08:00 96.3 65 18 112/60 (77) 97 07/12/18 04:00 97.7 54 18 124/58 (80) 97 07/12/18 00:00 97.7 58 18 132/67 (88) 96 07/11/18 21:00 Room Air 07/11/18 20:34 57 18 Room Air 21 07/11/18 20:00 98.5 52 18 129/68 (88) 95 07/11/18 16:00 98.6 83 19 115/69 (84) 97 Height (Feet): 5 Height (Inches): 6.00 Weight (Pounds): 109 General Appearance: WD/WN, no acute distress, cachetic HEENT: normocephalic, atraumatic, anicteric, mucous membranes moist, PERRL, pharynx normal, supple, no JVD Respiratory/Chest: chest wall non-tender, lungs clear, normal breath sounds, no respiratory distress, no accessory muscle use Cardiovascular: normal peripheral pulses, normal rate, regular rhythm, no gallop/murmur, no JVD Abdomen: normal bowel sounds, soft, non tender, no organomegaly, non distended , no mass, no scars Genitourinary: normal external genitalia Extremities: no cyanosis, no clubbing Skin: no rash, no lesions Neurologic/Psychiatric: alert, responsive Lymphatic: no neck adenopathy, no groin adenopathy Musculoskeletal: atrophy Microbiology Date/Time Source Procedure Growth Status 07/09/18 21:45 Urine,Clean Catch Urine Culture - Preliminary Gram Negative Bacillus 1 Resulted Current Medications Medications (Trade) Dose Ordered Sig/Reza Route PRN Reason Start Time Stop Time Status Last Admin Dose Admin Acetaminophen (Tylenol) 650 mg Q4H PRN ORAL Mild Pain (Pain Scale 1-3) 07/09/18 00:30 08/08/18 00:29 07/09/18 20:23 Albuterol/ Ipratropium (Albuterol/ Ipratropium) 3 ml EVERY 4 HOURS PRN HHN Shortness of Breath 07/09/18 00:30 07/14/18 00:29 Bisacodyl (Dulcolax) 10 mg DAILY PRN ORAL Constipation 07/09/18 00:30 08/08/18 00:29 Bisacodyl (Dulcolax) 10 mg DAILY PRN RECTAL Constipation 07/09/18 00:30 08/08/18 00:29 Budesonide (Pulmicort) 0.5 mg Q12H PRN HHN Shortness of Breath 07/09/18 00:45 08/08/18 00:44 Carbidopa/Levodopa (Sinemet 25/100) 1 tab TWICE A DAY ORAL 07/09/18 09:00 08/08/18 08:59 07/12/18 09:21 Ceftriaxone Sodium 1 gm/ Dextrose 55 ml @ 110 mls/hr Q24H IVPB 07/09/18 00:30 07/16/18 00:29 07/12/18 00:43 Clonazepam (KlonoPIN) 0.5 mg TWICE A DAY ORAL 07/09/18 09:00 07/16/18 08:59 07/12/18 09:21 Dextrose (Dextrose 50%) 25 ml Q30M PRN IV Hypoglycemia 07/09/18 00:30 08/08/18 00:29 Dextrose (Dextrose 50%) 50 ml Q30M PRN IV Hypoglycemia 07/09/18 00:30 08/08/18 00:29 Docusate Sodium (Colace) 100 mg TWICE A DAY ORAL 07/09/18 09:00 08/08/18 08:59 07/12/18 09:21 Escitalopram Oxalate (Lexapro) 20 mg DAILY ORAL 07/09/18 09:00 08/08/18 08:59 07/12/18 09:21 Famotidine (Pepcid) 20 mg DAILY ORAL 07/09/18 09:00 08/08/18 08:59 07/12/18 09:21 Glycerin (Glycerin) 1 supp DAILYPRN PRN RECTAL Constipation 07/09/18 00:45 08/08/18 00:44 Insulin Aspart (NovoLOG) BEFORE MEALS AND HS SUBQ 07/09/18 06:30 08/08/18 06:29 07/12/18 12:32 Insulin Detemir (Levemir) 10 units EVERY 12 HOURS SUBQ 07/09/18 09:00 08/08/18 08:59 07/12/18 09:25 Magnesium Hydroxide (Mom) 30 ml EVERY 72 HOURS PRN ORAL Constipation 07/09/18 03:15 08/08/18 03:14 Mirtazapine (Remeron) 45 mg BEDTIME ORAL 07/11/18 21:00 08/10/18 20:59 07/11/18 21:02 Multivitamins Therapeutic (Therapeutic Multivitamin) 1 ea DAILY ORAL 07/09/18 09:00 08/08/18 08:59 07/12/18 09:21 Sodium Chloride 1,000 ml @ 75 mls/hr [id number] IV 07/09/18 00:30 08/08/18 00:29 07/12/18 08:30 Sodium Phosphate (Fleet's Sodium Phosl Enema) 133 ml DAILYPRN PRN RECTAL Constipation-last choice 07/09/18 00:30 08/08/18 00:29 Red Arenas M.D. Jul 12, 2018 14:13
--- NOTE | 2018-07-12 15:00 | Consultation ---
DATE OF CONSULTATION: 07/11/2018 INFECTIOUS DISEASE CONSULTATION CONSULTING PHYSICIAN: Red Arenas M.D. REQUESTING PHYSICIAN: Arian De Leon M.D. HISTORY OF PRESENT ILLNESS: The patient is a 67-year-old female with past medical history of dementia, depression, hypertension, degenerative arthritis, was sent to the emergency room at [facility] for altered mental status and dehydration. The patient was found to be hypotensive, which was concerning for sepsis and mild leukocytosis and evidence of urinary tract infection. So, she was started on IV ceftriaxone and an Infectious Disease consultation was requested for antibiotics treatment and further management. As of note, the patient is demented, poor historian, cannot provide any history. History was mainly obtained from the medical record. REVIEW OF SYSTEMS: Unable to obtain, the patient is a poor historian. PAST MEDICAL HISTORY: Significant for hypertension, dementia, depression, and degenerative arthritis. PAST SURGICAL HISTORY: Negative. FAMILY HISTORY: Unable to obtain. SOCIAL HISTORY: The patient lives at the senior living facility and bedbound. No recent drugs, tobacco, or alcohol. ALLERGIES: No known drug allergy. MEDICATIONS: She is currently on ceftriaxone 1 g q.24 hours. For the rest of her medications, please refer to MAR. LABORATORY AND DIAGNOSTIC DATA: Labs showed white count of 5.9, hemoglobin of 11.3, platelet count of 192. BUN of 33, creatinine of 0.8. AST of 44 and ALT of 47. Microbiology, urine culture is growing gram-negative bacillus. MRSA, VRE, and CRE screening were all negative. Imaging, head CT scan on admission showed unremarkable noncontrast head CT scan. PHYSICAL EXAMINATION: VITAL SIGNS: Temperature 97.7, pulse 74, respirations 18, blood pressure 120/79, and saturation 98% on room air. GENERAL: A middle-aged female, lying in bed, awake, alert, but demented, not in acute distress. HEENT: Normocephalic and atraumatic. Pupils are reactive to light. Pale sclerae. Moist oral mucosa. No exudate. NECK: Supple. No lymphadenopathy. CARDIOVASCULAR: Regular rate and rhythm. No murmur or gallop. LUNGS: Clear bilaterally. No wheezing or rhonchi. Diminished breathing sounds at the bases. ABDOMEN: Soft, nontender, nondistended. Normal bowel sounds. No hepatosplenomegaly or ascites. EXTREMITIES: Trace edema. No cyanosis. SKIN: No rash. No hives. ASSESSMENT AND RECOMMENDATION: 1. UTI due to gram-negative rods. Continue ceftriaxone for now. Pending urine culture results. We will deescalate antibiotics based on the culture. 2. Altered level of consciousness, acute encephalopathy suspect due to the above. Continue hydration, antibiotics, monitor culture, head CT did not show any acute pathology. Avoid sedative. 3. Hypotension, rule out sepsis versus dehydration. We will send blood culture and continue ceftriaxone when hydration as needed. 4. Dehydration. Continue IV fluids. Monitor electrolytes. Thank you for the consult. ID will continue to follow. Red Arenas M.D. DR: KAMI JOB#: [id number] CC:
[2018-07-12] MEDS ORDERED: Tubing IV Secondary IV ONE (15:26)
[2018-07-12 16:04] VITALS: BP 113/59
--- NOTE | 2018-07-12 18:00 | Progress Note ---
DATE: 07/12/2018 SUBJECTIVE: This is an elderly female in bed, comfortable, no distress. Unable to talk. PHYSICAL EXAMINATION: VITAL SIGNS: Blood pressure is 113/59, pulse 55, temperature is 98.1. CHEST: Bilaterally clear. CARDIOVASCULAR: Regular rhythm. ABDOMEN: Soft. EXTREMITIES: CCE. NEUROLOGICAL: No focal deficit. ASSESSMENT AND PLAN: 1. UTI. 2. Dehydration. 3. Encephalopathy. PLAN: 1. . 2. Continue medical treatment. 3. Discharge plan to SNF. Cheng De Leon M.D. DR: Meng JOB#: [id number] CC:
[2018-07-12 20:00] VITALS: BP 132/65
--- NOTE | 2018-07-12 21:40 | General Progress Note ---
Assessment/Plan Problem List: (1) Encephalopathy ICD Codes: G93.40 - Encephalopathy, unspecified SNOMED: 01538240 (2) Encephalopathy due to metabolic factor or toxin SNOMED: 193005935 (3) MDD (major depressive disorder) Assessment & Plan: remeron 30mg po qhs klonopin 1mg po hs provided ro/st ICD Codes: F32.9 - Major depressive disorder, single episode, unspecified SNOMED: 237817670 Status: stable Assessment/Plan Remeron 45mg po qhs Klonopin 1mg po hs provided ro/st Subjective Date patient seen: Jul 12, 2018 Neurologic/Psychiatric: Reports: anxiety, depressed Allergies: Coded Allergies: No Known Allergies (Unverified , 07/08/18) Subjective the pt is low energy min talkative cognitive impairment Objective Last 24 Hour Vital Signs Date Time Temp Pulse Resp B/P (MAP) Pulse Ox O2 Delivery O2 Flow Rate FiO2 07/12/18 20:00 98.1 62 18 132/65 (87) 95 07/12/18 16:04 98.4 55 18 113/59 (77) 99 07/12/18 11:53 98.6 61 17 115/61 (79) 96 07/12/18 10:59 65 18 Room Air 21 07/12/18 09:00 Room Air 07/12/18 08:00 96.3 65 18 112/60 (77) 97 07/12/18 04:00 97.7 54 18 124/58 (80) 97 07/12/18 00:00 97.7 58 18 132/67 (88) 96 Intake and Output 07/11/18 07/12/18 18:59 06:59 Intake Total 1550 ml 805 ml Output Total 1600 ml Balance 1550 ml -795 ml IV Total 900 ml 805 ml Other 650 ml Output Urine Total 1600 ml # Voids 3 3 # Bowel Movements 3 4 Height (Feet): 5 Height (Inches): 6.00 Weight (Pounds): 109 General Appearance: no apparent distress, alert, confused Darren See MD Jul 12, 2018 21:40
[2018-07-13] VITALS: BP 128/67
[2018-07-13] MEDS: cefTRIAXone 1 GM in D5W 55 ML IVPB SCH (00:19)
[2018-07-13 04:00] VITALS: BP 124/65
[2018-07-13] MEDS: NovoLOG Insulin Flexpen SUBQ SCH ×2 (06:30→11:30)
[2018-07-13 08:00] VITALS: BP 135/65
[2018-07-13] MEDS: clonazePAM 0.5mg tab ORAL SCH (08:40)
[2018-07-13] MEDS: Levodopa/Carbidopa 25/100 tab ORAL SCH (08:40)
[2018-07-13] MEDS: Multivitamin w/Minerals tab ORAL SCH (08:40)
[2018-07-13] MEDS: Docusate 100mg cap ORAL SCH (08:40)
[2018-07-13] MEDS: Levemir Flexpen SUBQ SCH (08:42)
[2018-07-13 12:00] VITALS: BP 128/65
[2018-07-13] MEDS ORDERED: CEFTRIAXONE1 G2 IV (14:09)
--- NOTE | 2018-07-13 14:47 | Infectious Diseases Prog Note ---
Assessment/Plan Problems: (1) UTI (urinary tract infection) Assessment & Plan: due to gram negative rods, E.coli as micro lab , sensitivity is still pending , continue ceftriaxone for 7 days total pending culture results . I will follow up on the final result and upgrade antibiotics if needed (2) Dehydration Assessment & Plan: continue IVF and hydration, encourage po intake (3) Encephalopathy due to metabolic factor or toxin Assessment & Plan: improving , present on admission (4) Hypotension Assessment & Plan: most likely due to dehydration with negative blood culture so far . encourage hydration Subjective Constitutional: Reports: no symptoms HEENT: Reports: no symptoms Respiratory: Reports: no symptoms Breasts: Reports: no symptoms Cardiovascular: Reports: no symptoms Gastrointestinal/Abdominal: Reports: no symptoms Genitourinary: Reports: no symptoms Neurologic: Reports: no symptoms Psychiatric: Reports: no symptoms Skin: Reports: no symptoms Endocrine: Reports: no symptoms Hematologic: Reports: no symptoms Musculoskeletal: Reports: no symptoms Allergies: Coded Allergies: No Known Allergies (Unverified , 07/08/18) Subjective she was up in bed, has mild generalized body ache, afebrile, tolerated oral intake well Objective Vital Signs Last 24 Hour Vital Signs Date Time Temp Pulse Resp B/P (MAP) Pulse Ox O2 Delivery O2 Flow Rate FiO2 07/13/18 12:00 98.2 54 16 128/65 (86) 100 07/13/18 11:45 Room Air 07/13/18 09:00 Room Air 07/13/18 08:00 97.8 51 16 135/65 (88) 100 07/13/18 07:35 55 16 Room Air 21 07/13/18 04:00 97.6 54 18 124/65 (84) 100 07/13/18 00:00 97.8 54 18 128/67 (87) 95 07/12/18 21:00 Room Air 07/12/18 20:05 60 18 Room Air 21 07/12/18 20:00 98.1 62 18 132/65 (87) 95 07/12/18 16:04 98.4 55 18 113/59 (77) 99 Height (Feet): 5 Height (Inches): 6.00 Weight (Pounds): 115 General Appearance: WD/WN, no acute distress HEENT: normocephalic, atraumatic, anicteric, mucous membranes moist, PERRL Respiratory/Chest: chest wall non-tender, lungs clear, normal breath sounds, no respiratory distress, no accessory muscle use, decreased breath sounds Cardiovascular: normal peripheral pulses, normal rate, regular rhythm, no gallop/murmur, no JVD Abdomen: normal bowel sounds, soft, non tender, no organomegaly, non distended , no mass, no scars Extremities: no cyanosis, no clubbing Skin: no rash, no lesions, no ulcers Neurologic/Psychiatric: alert, oriented x 3 Lymphatic: no neck adenopathy, no groin adenopathy Musculoskeletal: normal muscle bulk, no effusion Microbiology Date/Time Source Procedure Growth Status 07/11/18 16:30 Blood Blood Culture - Preliminary NO GROWTH AFTER 24 HOURS Resulted 07/11/18 16:15 Blood Blood Culture - Preliminary NO GROWTH AFTER 24 HOURS Resulted Current Medications Medications (Trade) Dose Ordered Sig/Reza Route PRN Reason Start Time Stop Time Status Last Admin Dose Admin Acetaminophen (Tylenol) 650 mg Q4H PRN ORAL Mild Pain (Pain Scale 1-3) 07/09/18 00:30 08/08/18 00:29 07/13/18 08:41 Albuterol/ Ipratropium (Albuterol/ Ipratropium) 3 ml EVERY 4 HOURS PRN HHN Shortness of Breath 07/09/18 00:30 07/14/18 00:29 Bisacodyl (Dulcolax) 10 mg DAILY PRN ORAL Constipation 07/09/18 00:30 08/08/18 00:29 Bisacodyl (Dulcolax) 10 mg DAILY PRN RECTAL Constipation 07/13/18 10:30 08/08/18 00:29 Budesonide (Pulmicort) 0.5 mg Q12H PRN HHN Shortness of Breath 07/09/18 00:45 08/08/18 00:44 Carbidopa/Levodopa (Sinemet 25/100) 1 tab TWICE A DAY ORAL 07/09/18 09:00 08/08/18 08:59 07/13/18 08:40 Ceftriaxone Sodium 1 gm/ Dextrose 55 ml @ 110 mls/hr Q24H IVPB 07/09/18 00:30 07/16/18 00:29 07/13/18 00:19 Clonazepam (KlonoPIN) 0.5 mg TWICE A DAY ORAL 07/09/18 09:00 07/16/18 08:59 07/13/18 08:40 Dextrose (Dextrose 50%) 25 ml Q30M PRN IV Hypoglycemia 07/09/18 00:30 08/08/18 00:29 Dextrose (Dextrose 50%) 50 ml Q30M PRN IV Hypoglycemia 07/09/18 00:30 08/08/18 00:29 Docusate Sodium (Colace) 100 mg TWICE A DAY ORAL 07/09/18 09:00 08/08/18 08:59 07/13/18 08:40 Escitalopram Oxalate (Lexapro) 20 mg DAILY ORAL 07/09/18 09:00 08/08/18 08:59 07/13/18 08:40 Famotidine (Pepcid) 20 mg DAILY ORAL 07/09/18 09:00 08/08/18 08:59 07/13/18 08:40 Glycerin (Glycerin) 1 supp DAILYPRN PRN RECTAL Constipation 07/09/18 00:45 08/08/18 00:44 Insulin Aspart (NovoLOG) BEFORE MEALS AND HS SUBQ 07/09/18 06:30 08/08/18 06:29 07/12/18 20:08 Insulin Detemir (Levemir) 10 units EVERY 12 HOURS SUBQ 07/09/18 09:00 08/08/18 08:59 07/13/18 08:42 Magnesium Hydroxide (Mom) 30 ml EVERY 72 HOURS PRN ORAL Constipation 07/09/18 03:15 08/08/18 03:14 Mirtazapine (Remeron) 45 mg BEDTIME ORAL 07/11/18 21:00 08/10/18 20:59 07/12/18 20:07 Multivitamins Therapeutic (Therapeutic Multivitamin) 1 ea DAILY ORAL 07/09/18 09:00 08/08/18 08:59 07/13/18 08:40 Sodium Chloride 1,000 ml @ 75 mls/hr [id number] IV 07/09/18 00:30 08/08/18 00:29 07/13/18 03:13 Sodium Phosphate (Fleet's Sodium Phosl Enema) 133 ml DAILYPRN PRN RECTAL Constipation-last choice 07/09/18 00:30 08/08/18 00:29 Red Arenas M.D. Jul 13, 2018 14:47
--- NOTE | 2018-07-13 23:13 | General Progress Note ---
Assessment/Plan Problem List: (1) Encephalopathy ICD Codes: G93.40 - Encephalopathy, unspecified SNOMED: 66944670 (2) Encephalopathy due to metabolic factor or toxin SNOMED: 604448135 (3) MDD (major depressive disorder) Assessment & Plan: remeron 30mg po qhs klonopin 1mg po hs provided ro/st ICD Codes: F32.9 - Major depressive disorder, single episode, unspecified SNOMED: 958605117 Status: stable Assessment/Plan Remeron 45mg po qhs Klonopin 1mg po hs provided ro/st Subjective Neurologic/Psychiatric: Reports: anxiety, depressed, emotional problems Allergies: Coded Allergies: No Known Allergies (Unverified , 07/08/18) Subjective the pt is low energy Objective Last 24 Hour Vital Signs Date Time Temp Pulse Resp B/P (MAP) Pulse Ox O2 Delivery O2 Flow Rate FiO2 07/13/18 12:00 98.2 54 16 128/65 (86) 100 07/13/18 11:45 Room Air 07/13/18 09:00 Room Air 07/13/18 08:00 97.8 51 16 135/65 (88) 100 07/13/18 07:35 55 16 Room Air 21 07/13/18 04:00 97.6 54 18 124/65 (84) 100 07/13/18 00:00 97.8 54 18 128/67 (87) 95 Intake and Output 07/12/18 07/13/18 18:59 06:59 Intake Total 1680 ml 805 ml Output Total 600 ml 800 ml Balance 1080 ml 5 ml Intake Oral 1080 ml IV Total 600 ml 805 ml Output Urine Total 600 ml 800 ml # Bowel Movements 2 Height (Feet): 5 Height (Inches): 6.00 Weight (Pounds): 115 General Appearance: WD/WN, no apparent distress, alert, thin Darren See MD Jul 13, 2018 23:13
--- NOTE | 2018-07-13 23:45 | Discharge Summary ---
DATE OF ADMISSION: 07/08/2018 DATE OF DISCHARGE: 07/13/2018 HISTORY OF PRESENT ILLNESS: This is an elderly 67-year-old female, who came to the emergency room for altered mental status, weakness, rule out UTI, and hypotension. The patient was also dehydrated and she currently opens her eyes and is still nonverbal. PHYSICAL EXAMINATION: VITAL SIGNS: Blood pressure is 128/65, pulse 54. No fever. CHEST: Bilaterally clear. CARDIOVASCULAR: Regular rhythm. No gallop. No murmur. ABDOMEN: Soft. EXTREMITIES: No CCE. NEUROLOGICAL: Generalized weakness. GENITOURINARY: Deferred. LABORATORY EXAMINATION: White counts are normal. Her urine culture is showing gram-negative bacilli. ASSESSMENT: 1. Altered mental status. 2. UTI. 3. Dehydration. 4. Encephalopathy. HOSPITAL COURSE AND PLAN: The patient is going to go back to the long term. Continue home medications. We will start p.o. antibiotics, Levaquin 500 daily. Continue Sinemet. Continue Colace. Continue Levemir sliding scale. Discontinue IV fluid. Otherwise, hospital course was unremarkable. Cheng De Leon M.D. DR: Shelley JOB#: [id number] CC:
== END 2018-07-13 15:45 | DRG 690 ==
LOC: EEVIPCON 22:27 → 4E 22:27
DX: N39.0 Urinary tract infection, site not specified (principal); G93.40 Encephalopathy, unspecified; E86.0 Dehydration; B96.89 Other specified bacterial agents as the cause of diseases classified elsewhere; R41.82 Altered mental status, unspecified; I10 Essential (primary) hypertension; E11.9 Type 2 diabetes mellitus without complications; Z79.4 Long term (current) use of insulin; F32.9 Major depressive disorder, single episode, unspecified; I95.9 Hypotension, unspecified; G20 Parkinson's disease; F02.80 Dementia in other diseases classified elsewhere, unspecified severity, without behavioral disturbance, psychotic disturbance, mood disturbance, and anxiety; E83.42 Hypomagnesemia
CPT/HCPCS: 36415; 70450; 80048; 80053; 82962; 83036; 83735; 85025; 87040; 87081; 87086; 87181; 93306; 94664; J1815; S5561